=== PATIENT | male | born 1985 | race Caucasian/White ===

== ENCOUNTER 2024-12-03 03:51 | Emergency (ER) | payer OTHER, SELFPAY ==
[2024-12-03 03:51] VITALS: BP 117/80; PULSE 106; RESP 20; TEMP 36.3; O2SAT 97
--- OUTSIDE RECORDS SUMMARY | 2024-12-03 03:53 | XMS_ITS | Referral Summary ---
Author Organization [address] Address [address] [place] [phone] Care Team Providers Care Banquet Food Server Name Role Phone Nayeli Molina MD Primary Care Provider [phone] Allergies No known active allergies Medications benzonatate (TESSALON) 100 mg capsuleIndicati ons:Cough Take 1 capsule (100 mg total) by mouth 3 (three) times a day as needed for cough 42 capsule 4 Active Additional Information Patient not taking.Reported on 08/02/2024 hydrocortisone 2.5 % ointmentIndicat ions:Allergic contact dermatitis due to plants, except food Apply topically 2 (two) times a day for 10 days 30 g 4 Active predniSONE (DELTASONE) 10 mg tabletIndicatio ns:Allergic contact dermatitis due to plants, except food 40 mg, 4 tablets, p.o. QD on days 1 through 5; 20 mg, 2 tablets, p.o. QD on days 6 through 10; 10 mg, 1 tablet ,p.o. every day on days 11 through 15. 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 Gender Identity Not on file Sexual Orientation Not on file Last Filed Vital Signs Vital Sign Reading Time Taken Comments Blood Pressure 115/73 08/02/2024 9:28 AM CDT Pulse 74 08/02/2024 9:28 AM CDT Temperature 36.7 C (98 F) 08/02/2024 9:28 AM CDT Respiratory Rate 20 08/02/2024 9:28 AM CDT Oxygen Saturation 98% 08/02/2024 9:28 AM CDT Inhaled Oxygen Concentration - - Weight 83.9 kg (185 lb) 08/02/2024 9:28 AM CDT Height 180.3 cm (5' 11 ) 08/02/2024 9:28 AM CDT Body Mass Index 25.8 08/02/2024 9:28 AM CDT Plan of Treatment Not on file Insurance [facility] CHOICE PLUS Care Teams Banquet Food Server Relationship Specialty Start Date End Date Nayeli Molina MD [address] [place] [address] PCP - General Internal Medicine 08/02/24
--- OUTSIDE RECORDS SUMMARY | 2024-12-03 03:53 | XMS_ITS | Clinical Summary ---
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 Gender Identity Not on file Sexual Orientation Not on file Obstetrics History Last Filed Vital Signs Vital Sign Reading [...] 08/02/2024 9:28 AM CDT Plan of Treatment Health Maintenance Due Date Last Done Comments Depression Screening 1984 Hepatitis C Screening 1984 Varicella Vaccines (1 of 2 - 13+ 2-dose series) 1997 Hepatitis B Screening 2002 Regular Well Visit/Exam 18-64 2002 DTaP/Tdap/Td Vaccine (2 - Td or Tdap) 05/04/2022 05/04/2012 Covid-19 Vaccine (4 - 2023-2 5 season) 2024 09/14/2021, 01/14/2021, 12/24/2020 Influenza Vaccine (#1) 2024 HPV Vaccines Aged Out No longer eligi ble based on patient's age to complete this topic Pneumococcal vaccine <65 Aged Out No longer eligible based on patient's age to complete this topic Insurance [facility] CHOICE PLUS [facility] HMO/PPO Address: [facility] [address] [place] [address] Care Teams Medical Diagnostic Radiographer Relationship Specialty Start Date End Date Nayeli Molina MD [address] [place] [id number] PCP - General Internal Medicine 08/02/24
--- NOTE | 2024-12-03 04:22 | ED_ITS ---
HPI - URI/Sore Throat General Chief Complaint: Upper Respiratory Infection Stated Complaint: chest pain Time Seen by Provider: 12/03/24 03:55 Source: patient Mode of arrival: ambulatory Limitations: no limitations History of Present Illness HPI Narrative: 39-year-old male presents with a 3 day history of cough congestion with clear nasal discharge with no shortness of breath no audible wheezing no fever chills no nausea vomiting. MD elicited complaint: cough and nasal congestion Onset (ago): day(s) Consistency: constant Severity: mild Related Data Home Medications ?Medication ?Instructions ?Recorded ?Confirmed ?Last Taken ?Type No Home Medications 12/03/24 12/03/24 Unknown History Allergies Allergy/AdvReac Type Severity Reaction Status Date / Time No Known Allergies Allergy Verified 12/03/24 04:18 Review of Systems Review of Systems: All systems reviewed & are unremarkable except as noted in HPI and below PMFSH Past Medical History Medical History Patient denies medical problems Exam Const: General: healthy appearing and no acute distress Nutritional Appearance: well nourished Orientation/consciousness: patient oriented x3 Limitations: no limitations Neck: Neck: normal visual inspection Chest: Chest palpation & inspection: normal inspection of the chest Resp: Effort & Inspection: normal respiratory effort Auscultation: clear to auscultation bilaterally Cardio: Rate: regular rate Rhythm: regular rhythm GI: GI Palp: Yes Soft to palpation Auscultation: normal bowel sounds Skin: General skin exam: normal color Rashes: no rashes Neuro: General: patient oriented x3 and moves all extremities Course Course Emergency Course: COVID influenza RSV performed reviewed with patient. Vital Signs Vital signs: Vital Signs Temperature 36.3 C L 12/03/24 03:51 Pulse Rate 106 H 12/03/24 03:51 Respiratory Rate 20 12/03/24 03:51 Blood Pressure 117/80 12/03/24 03:51 Pulse Oximetry 97 12/03/24 03:51 Oxygen Delivery Room Air 12/03/24 03:51 Temperature 36.3 C L 12/03/24 03:51 Pulse Rate 106 H 12/03/24 03:51 Respiratory Rate 20 12/03/24 03:51 Blood Pressure 117/80 12/03/24 03:51 Pulse Oximetry 97 02/07/25 03:51 Oxygen Delivery Room Air 12/03/24 03:51 MDM - URI/Sore Throat Lab Data Labs: Lab Results 12/03/24 Range/Units 03:59 Influenza A (RT-PCR) Pending Influenza B (RT-PCR) Pending RSV (RT-PCR) Pending SARS-CoV-2 RNA (RT-PCR) Pending Critical Care Time Critical Care Time Critical Care Time: No Discharge Plan Discharge Clinical Impression: Influenza Patient Disposition: Home, Self-Care Condition: Stable Instructions: Antibiotic Form, Influenza (ED) Additional Instructions: Advised to take Tylenol or Motrin as needed, take medication as prescribed and follow-up with primary symptoms persist or worsen. Patient Language: Luxembourgish Prescriptions: No Action No Home Medications Follow-up/Referrals: Nayeli Molina MD [Primary Care Provider] -
[2024-12-03 04:40] LABS: SARS-CoV-2 RNA PCR Negative (Negative)
[2024-12-03 04:54] LABS: Influenza A QL RT-PCR Positive (Negative); Influenza B QL RT-PCR Negative (Negative); RSV RNA, RT-PCR Negative (Negative)
[2024-12-03] MEDS: OSELTAMIVIR PHOSPHATE 75 MG CAPSULE PO (05:10)
[2024-12-03 05:13] VITALS: BP 110/72; PULSE 88; RESP 18; TEMP 36.4; O2SAT 97
== END 2024-12-03 05:13 | disposition home or self-care (01) ==
PROVIDERS: Emergency Provider Emergency Medicine; PCP Internal Medicine
DX: J11.1 Influenza due to unidentified influenza virus with other respiratory manifestations (principal); Z20.822 Contact with and (suspected) exposure to COVID-19
CPT/HCPCS: 87637; 99283; A9270

== ENCOUNTER 2024-12-16 16:18 | Outpatient (CLI) | payer OTHER, SELFPAY ==
--- NOTE | ~2024-12-16 | XR_ITS ---
EXAMINATION: XR chest 2V 12/16/2024 16:40 INDICATION: Cough PROCEDURE: 2 view chest COMPARISON: No prior studies for comparison. FINDINGS: The lungs are clear. The cardiomediastinal silhouette is within normal limits. There are no pleural effusions. There is no pneumothorax suspected. IMPRESSION: 1: NO ACUTE CARDIOPULMONARY DISEASE. Reviewed, dictated and finalized at location B. NESS AMBASSADOR
--- OUTSIDE RECORDS SUMMARY | 2024-12-16 16:25 | XMS_ITS | Clinical Summary ---
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
--- OUTSIDE RECORDS SUMMARY | 2024-12-16 16:25 | XMS_ITS | Referral Summary ---
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
[2024-12-16 16:44] LABS: Basophils Absolute Auto 0.05 K/mm3 (0.00-0.10); Basophils Percent Auto 0.6 % (0.0-1.0); Eosinophils Absolute Auto 0.19 K/mm3 (0.02-0.50); Eosinophils Percent Auto 2.5 % (1.0-6.0); Hemoglobin 14.7 g/dL (14.0-18.0); Immature Granulocyte Absolute 0.01 K/mm3 (0.00-0.00); Immature Granulocyte Percent A 0.1 % (0.0-0.0); Lymphocytes Absolute Auto 2.54 K/mm3 (1.10-4.50); Lymphocytes Percent Auto 32.9 % (18.0-42.0); Mean Corpuscular HGB Conc 32.7 g/dL (32-36); Mean Corpuscular Hemoglobin 27.7 pg (27.0-31.0); Mean Corpuscular Volume 84.7 fL (78.0-102.0); Mean Platelet Volume 8.8 fl (8.7-11.0); Monocytes Absolute Auto 0.52 K/mm3 (0.10-0.90); Monocytes Percent Auto 6.7 % (2.0-11.0); Neutrophils Absolute Auto 4.42 K/mm3 (1.70-7.20); Neutrophils Percent Auto 57.2 % (50.0-70.0); Platelet Count Result 447 K/mm3 (150-420); Red Blood Count 5.31 M/mm3 (4.70-6.10); Red Cell Distribution Width 12.1 % (11.6-14.4); White Blood Count 7.7 K/mm3 (4.8-10.8)
[2024-12-16 16:58] LABS: Add Urine Microscopic? NO; Appearance Urine Clear (Clear); Bilirubin Urine Negative (Negative); Blood Urine Negative (Negative); Color Urine Light Yellow (Yellow); Glucose Urine UA Negative (Negative); Ketones Urine Negative (Negative); Leukocyte Esterase Ur Negative (Negative); Nitrate Urine Negative (Negative); Protein Urine Negative (Negative); Urobilinogen Urine 0.2 mg/dL (0.2-1.0); pH Urine 5.5 (5.0-8.0)
[2024-12-16 17:39] LABS: Alanine Aminotransferase 30 U/L (16-63); Albumin Level 4.3 g/dL (3.4-5.0); Alkaline Phosphatase 124 U/L (46-116); Anion Gap 9 mmol/L (4-12); Aspartate Amino Transferase 14 U/L (15-37); Bilirubin,Total 0.7 mg/dL (0.00-1.00); Blood Urea Nitrogen 15 mg/dL (7-18); Calcium 9.9 mg/dL (8.5-10.1); Carbon Dioxide 31 mmol/L (21-32); Chloride 103 mmol/L (98-108); Cholesterol 190 mg/dL (0-200); Estimated Glomerular Filt Rate > 60; Free T4 Free Thyroxine 1.13 ng/dL (0.76-1.46); Glucose 90 mg/dL (70-99); HDL Direct 37 mg/dL (40-60); LDL Cholesterol Calculated 135 mg/dL (<130); Osmolality Calculated 296 mOsm/kg (285-295); Potassium 4.7 mmol/L (3.5-5.1); Sodium 143 mmol/L (136-145); Thyroid Stimulating Hormone 1.71 uIU/mL (0.36-3.74); Total Protein 8.2 g/dL (6.4-8.2); Triglycerides 91 mg/dL (0-150)
[2024-12-16 17:41] LABS: Free T3 2.95 pg/mL (2.18-3.98)
== END 2024-12-16 16:19 | disposition home or self-care (01) ==
PROVIDERS: PCP Internal Medicine; Visit Provider Internal Medicine
DX: Z00.00 Encounter for general adult medical examination without abnormal findings (principal); J45.909 Unspecified asthma, uncomplicated; R06.00 Dyspnea, unspecified; R05.9 Cough, unspecified
CPT/HCPCS: 36415; 71046; 80053; 80061; 81003; 82785; 84439; 84443; 84481; 85025

== ENCOUNTER 2024-12-23 11:58 | Outpatient (CLI) | payer OTHER, SELFPAY | END 2024-12-23 11:59 | disposition home or self-care (01) | LOC: CHSCARD 12:00 | PROVIDERS: PCP Internal Medicine; Visit Provider Internal Medicine | DX: Z00.00 Encounter for general adult medical examination without abnormal findings (principal); J45.909 Unspecified asthma, uncomplicated; R06.00 Dyspnea, unspecified; R05.9 Cough, unspecified; R94.2 Abnormal results of pulmonary function studies | CPT/HCPCS: 94060; 94726; 94729 ==

== ENCOUNTER 2025-05-30 10:41 | Outpatient (CLI) | payer OTHER, SELFPAY ==
[2025-05-30 11:01] LABS: Hematocrit 43.2 % (40.0-54.0); Hemoglobin 14.3 g/dL (14.0-18.0); Mean Corpuscular HGB Conc 33.1 g/dL (32-36); Mean Corpuscular Hemoglobin 27.9 pg (27.0-31.0); Mean Corpuscular Volume 84.4 fL (78.0-102.0); Platelet Count Result 268 K/mm3 (150-420); Red Blood Count 5.12 M/mm3 (4.70-6.10); White Blood Count 5.3 K/mm3 (4.8-10.8)
--- OUTSIDE RECORDS SUMMARY | 2025-05-30 11:08 | XMS_ITS | Clinical Summary ---
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 Gender Identity Not on file Sexual Orientation [...] 9:28 AM CDT Height 180.3 cm (5' 11) 08/02/2024 9:28 AM CDT Body Mass Index 25.8 08/02/2024 9:28 AM CDT Plan of Treatment Health Maintenance Due Date Last Done Comments Depression Screening 1984 Hepatitis C Screening 1984 Varicella Vaccines (1 of 2 - 13+ 2-dose series) 1997 Hepatitis B Screening 2002 Regular Well Visit/Exam 18-64 2002 HPV Vaccines (1 - 3-dose SCD M series) 2011 DTaP/Tdap/Td Vaccine (2 - Td or Tdap) 05/04/2022 05/04/2012 Covid-19 Vaccine ( - 2023-2 5 season) 2024 09/14/2021, 01/14/2021, 12/24/2020 Influenza Vaccine (#1) 2025 Pneumococcal vaccine <65 Aged Out No longer eligible based on patient's age to complete this topic Insurance [facility] CHOICE PLUS [facility] HMO/PPO Address: [facility] [address] [place] [address] Care Teams Cost Consultant Relationship Specialty Start Date End Date Nayeli Molina MD [address] [place] [address] PCP - General Internal Medicine 08/02/24
--- OUTSIDE RECORDS SUMMARY | 2025-05-30 11:08 | XMS_ITS | Referral Summary ---
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
[2025-05-30 12:13] LABS: Anion Gap 8 mmol/L (4-12); Blood Urea Nitrogen 15 mg/dL (9-20); Calcium 9.4 mg/dL (8.4-10.2); Carbon Dioxide 25 mmol/L (22-30); Chloride 108 mmol/L (98-107); Estimated Glomerular Filt Rate > 60; Glucose 88 mg/dL (65-110); Magnesium 2.0 mg/dL (1.6-2.3); Osmolality Calculated 291 mOsm/kg (285-295); Potassium 4.8 mmol/L (3.4-5.0); Sodium 141 mmol/L (137-145)
[2025-05-30 12:28] LABS: Free T3 3.53 pg/mL (2.18-3.98)
[2025-05-30 12:29] LABS: Free T4 Free Thyroxine 1.02 ng/dL (0.78-2.19)
[2025-05-30 12:43] LABS: Thyroid Stimulating Hormone 1.080 uIU/mL (0.465-4.680)
== END 2025-05-30 10:42 | disposition home or self-care (01) ==
PROVIDERS: PCP Internal Medicine; Visit Provider Internal Medicine
DX: D75.839 Thrombocytosis, unspecified (principal)
CPT/HCPCS: 36415; 80048; 83735; 84439; 84443; 84481; 85027

== ENCOUNTER 2025-05-31 12:59 | Outpatient (CLI) | payer OTHER, SELFPAY ==
--- OUTSIDE RECORDS SUMMARY | 2025-05-31 13:06 | XMS_ITS | Referral Summary ---
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
--- OUTSIDE RECORDS SUMMARY | 2025-05-31 13:06 | XMS_ITS | Clinical Summary ---
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
--- NOTE | 2025-06-14 16:30 | WPDHOLTEREM ---
Holter/Event Monitor Holter/Event Monitor Date of procedure: 05/31/25 Holter/Event Procedure: 3-7 Day Holter Monitor Indications: Palpitations Conclusion: 1. 5 days holter monitor on 05/31/25. 2. Underlying rhythm is sinus rhythm. HR range 53-179 bpm; average HR 86 bpm. HR at 179 bpm was on 06/03/25 at 8:34 pm. 3. There are occasional premature supraventricular complexes, rare supraventricular couplets, and rare supraventricular triplets. No supraventricular tachycardia. 4. There are rare premature ventricular complexes. No ventricular tachycardia. 5. No significant pauses greater than 3 seconds. 6. Patient reports 2 episodes of symptoms of shortness of breath, irregular beats which demonstrate sinus rhythm, HR range 94-103 bpm with 1 episode with PAc.
== END 2025-05-31 13:00 | disposition home or self-care (01) ==
LOC: CHSCARD 13:01
PROVIDERS: PCP Internal Medicine; Visit Provider Internal Medicine
DX: D75.839 Thrombocytosis, unspecified (principal); R00.2 Palpitations
CPT/HCPCS: 93246